=== PATIENT | female | born 1965 | race Two or more races ===

== ENCOUNTER 2018-07-23 20:21 | Emergency (ER) | payer MEDICAID, OTHER ==
[~2018-07-23] VITALS: Ht 157.5 cm; Wt 90.7 kg
[2018-07-23] MEDS ORDERED: SODIUM BICARBONATE 8.4% INJ 50ML SYRINGE IV ONE (20:32)
[2018-07-23] MEDS ORDERED: EPINEPHrine HCL 1 MG/10 ML SYRG IV ONE (20:32)
[2018-07-23] MEDS ORDERED: SODIUM BICARBONATE 8.4% INJ 50ML SYRINGE ONE (20:40)
[2018-07-23] MEDS ORDERED: NOREPINEPHRINE 8 MG/250ML KIT 250 ML IV ONE (21:13)
[2018-07-23 21:18] LABS: Basophils # (auto) 0.1 uL; Eosinophils # (auto) 0.1 uL; Eosinophils % (auto) 1.7 % (0.0-7.0); Monocytes # (auto) 0.3 uL
[2018-07-23 21:20] LABS: Hematocrit 44.4 % (36.0-46.0); Hemoglobin 13.8 g/dL (12.2-16.2); Lymphocytes # (auto) 3.4 uL; Lymphocytes % (auto) 41.7 % (10.0-50.0); Mean Corpuscular Hemoglobin 33.6 pg (28.0-32.0); Mean Corpuscular Hgb Conc. 31.2 g/dL (32.0-36.0); Mean Corpuscular Volume 107.7 fL (80.0-100.0); Monocytes % (auto) 3.7 % (0.0-12.0); Neutrophils # (auto) 4.2 uL; Neutrophils % (auto) 51.9 % (37.0-80.0); Nucleated Red Blood Cells % 0.9 %; Platelet Count (auto) 140 10^3/uL (140-450); Red Blood Cells 4.12 10^6/uL (4.0-5.20); Red Cell Distribution Width 17.7 % (11.8-14.3)
[2018-07-23 21:33] LABS: INR 1.31 (0.9-1.15); Partial Thromboplastin Time 47.9 sec (23.78-33.04); Prothrombin Time 13.8 sec (9.27-12.13)
[2018-07-23 21:43] LABS: Albumin 3.3 g/dL (3.4-5.0); Anion Gap 16 (5-15); Calcium 8.8 mg/dL (8.5-10.1); Carbon Dioxide 16 mmol/L (21-32); Chloride 104 mmol/L (98-107); Glucose 105 mg/dL (74-106); Sodium 136 mmol/L (136-145)
[2018-07-23 21:45] LABS: Alanine Aminotransferase 221 U/L (13-56); Aspartate Aminotransferase 348 U/L (15-37); BUN/Creatinine Ratio 10.6; GFR African American 7 mL/min; GFR Non-African American 5 mL/min
[2018-07-23 21:49] LABS: Alkaline Phosphatase 415 U/L (45-117); Bilirubin, Total 1.3 mg/dL (0.2-1.0); Total Protein 8.8 g/dL (6.4-8.2)
[2018-07-23] MEDS ORDERED: NOREPINEPHRINE 8 MG/250ML KIT 250 ML IV SCH (22:00)
[2018-07-23 22:15] VITALS: BP 76/58
[2018-07-23 22:30] LABS: Potassium > 10.0 mmol/L (3.5-5.1)
[2018-07-23 22:31] LABS: Blood Urea Nitrogen 86 mg/dL (7-18)
[2018-07-23] MEDS ORDERED: MORPHINE SULF INJ 2 MG/ML SYRINGE 1ML IV PRN (22:45)
[2018-07-23] MEDS ORDERED: VANCOMYCIN PER PHARMACY 0 MG IV SCH (22:45)
[2018-07-23] MEDS ORDERED: VANCOMYCIN 1GM/250ML 250 ML IV ONE (23:00)
[2018-07-24] MEDS ORDERED: PIPERACILLIN-TAZOB 2.25GM 50 ML IV SCH (06:00)
[2018-07-24] MEDS ORDERED: PANTOPRAZOLE 40 MG/10 ML VIAL IV SCH (10:00)
[2018-07-24] MEDS ORDERED: ENOXAPARIN SOD 40 MG/0.4 ML SYRINGE SC SCH (10:00)
== END 2018-07-24 05:15 | disposition home or self-care (01) ==
LOC: EDBD 20:21 → ER 20:31
DX: I46.9 Cardiac arrest, cause unspecified (principal); J96.01 Acute respiratory failure with hypoxia; J18.9 Pneumonia, unspecified organism; I13.2 Hypertensive heart and chronic kidney disease with heart failure and with stage 5 chronic kidney disease, or end stage renal disease; E11.22 Type 2 diabetes mellitus with diabetic chronic kidney disease; N18.6 End stage renal disease; I50.9 Heart failure, unspecified
CPT/HCPCS: 31500; 36415; 36600; 71045; 80053; 82805; 84484; 85025; 85610; 85730; 92950; 96365; 99291; J0171; 93005; 94002